=== PATIENT | female | born 1975 | race Two or more races ===

== ENCOUNTER 2016-11-01 19:58 | Emergency (ER) | payer OTHER ==
[~2016-11-01] VITALS: Ht 160 cm; Wt 97.3 kg
[2016-11-01 19:59] VITALS: BP 134/87
[2016-11-01] MEDS ORDERED: ALBU17IN INH (20:05)
[2016-11-01] MEDS ORDERED: IPRATROPIUM 0.5MG/ALBUTEROL 2.5MG INH SOL UD 3ML (DUONEB)(J7620) NEB ONE (21:00)
[2016-11-01] MEDS ORDERED: ADVAIR DISKUS 250/50 INH PWD INH ONE (21:00)
[2016-11-01] MEDS ORDERED: TESS100C PO (21:36)
[2016-11-01] MEDS ORDERED: CLAR1TAB2 PO (21:40)
--- NOTE | 2016-11-02 01:06 | REP ---
Clinical: Cough . Comparison: 09/11/2015 . Technique: PA and lateral. Findings: The mediastinum and cardiac silhouette are normal. The lung lafleur are relatively clear and without acute consolidation, effusion, or pneumothorax. Very subtle density in the medial right lower lung zone cannot be excluded. The The skeletal structures are intact and normal. Impression: 1. No acute cardiopulmonary process. 2. Very subtle density in the medial right lower lung zone cannot be excluded. Consider chest CT for further investigation. Signed by Riccardo Hassan MD 11/02/2016 12:58 A
--- NOTE | 2016-11-04 08:05 | ED PDOC ---
Post-Departure Follow-Up certified letter sent to patient regarding radiology report. Madonna Wright MD Nov 04, 2016 08:04
== END 2016-11-01 22:06 | disposition home or self-care (01) ==
LOC: M ED 20:28
DX: J45.909 Unspecified asthma, uncomplicated (principal); R06.02 Shortness of breath; R05 Cough; Z87.891 Personal history of nicotine dependence

== ENCOUNTER → 2016-12-12 | Outpatient (CLI) | payer OTHER ==
[~2016-12-12] MED LIST: ALBU17IN INH; CLAR1TAB2 PO; TESS100C PO
[2016-12-12 12:58] LABS: BASO # 0.1 K/mm3 (0.0-0.2); EOS # 0.1 K/mm3 (0.0-0.50); EOS % 1.2 % (0.0-3.0); LARGE UNSTAINED CELL # 0.1 K/mm3 (0.0-0.4); LARGE UNSTAINED CELL % 1.2 % (0.0-4.0); LYMPH % 16.5 % (24.0-44.0); MEAN CORPUSCULAR HEMOGLOBIN 28.9 pg (27.0-33.0); MEAN CORPUSCULAR HGB CONC 34.7 g/dl (32.0-36.5); MEAN CORPUSCULAR VOLUME 83.3 fl (80.0-96.0); MONO # 0.4 K/mm3 (0.0-0.8); MONO % 5.9 % (0.0-5.0); NEUTROPHILS # 4.4 K/mm3 (1.8-7.7); NEUTROPHILS % 74.3 % (36.0-66.0); PLATELET COUNT, AUTOMATED 242 k/mm3 (150-450); RED CELL DISTRIBUTION WIDTH 14.8 % (11.5-14.5); WHITE BLOOD COUNT 5.9 K/mm3 (4.0-10.0)
[2016-12-12 13:39] LABS: ALBUMIN 3.8 GM/DL (3.2-5.2); ALBUMIN/GLOBULIN RATIO 1.12 (1.00-1.93); ALKALINE PHOSPHATASE 51 U/L (45-117); ALT/SGPT 27 U/L (12-78); ANION GAP 7 MEQ/L (8-16); AST/SGOT 16 U/L (15-37); BILIRUBIN,TOTAL 0.7 MG/DL (0.2-1.0); BLOOD UREA NITROGEN 13 MG/DL (7-18); CALCIUM LEVEL 8.8 MG/DL (8.5-10.1); CARBON DIOXIDE LEVEL 26 MEQ/L (21-32); CHLORIDE LEVEL 102 MEQ/L (98-107); CHOLESTEROL LEVEL 188 MG/DL (<200); CREATININE FOR GFR 0.64 MG/DL (0.55-1.02); GLOMERULAR FILTRATION RATE > 60.0 (>60); GLUCOSE, FASTING 88 MG/DL (70-105); POTASSIUM SERUM 4.2 MEQ/L (3.5-5.1); SODIUM LEVEL 135 MEQ/L (136-145); TOTAL PROTEIN 7.2 GM/DL (6.4-8.2); TRIGLYCERIDES LEVEL 111 MG/DL (<150)
== END ==
LOC: M LAB 12:15
PROVIDERS: ATTEND Physician Assistant
DX: R53.83 Other fatigue (principal); Z13.0 Encounter for screening for diseases of the blood and blood-forming organs and certain disorders involving the immune mechanism; Z13.220 Encounter for screening for lipoid disorders; Z13.21 Encounter for screening for nutritional disorder

== ENCOUNTER → 2016-12-23 | Outpatient (CLI) | payer OTHER ==
[~2016-12-23] MED LIST changes: +ISOVUE-370 76% 100ML VIAL (Q9967) As Ordered ONE
--- NOTE | 2016-12-23 22:15 | REP ---
CT chest with contrast: 12/23/2016. Comparison: Chest x-ray 11/01/2016, 09/11/2015. Clinical history: Possible ill-defined lung lesion on chest x-ray, CT to clarify. Technique: Bolus of 75 ml Isovue 370 with scanning through the chest and both coronal and sagittal reconstructions provided. The lung lafleur are well inflated. There is no pleural effusion, focal pleural thickening or pleural based mass. No calcific plaques are present. No nodule, infiltrate or atelectasis is seen right medial base. There are no findings. No chest wall soft tissue abnormalities are evident. Heart is not enlarged. There is no pericardial thickening or effusion. The aorta is without aneurysm or dissection. No specific chamber enlargement. There were a couple of calcifications in the aortic arch. No pathologic sized mediastinal or hilar adenopathy. No axillary or supraclavicular mass. Bone windows show sternum, manubrium, clavicles, small portion of the humeral heads, scapula, ribs and the included spine grossly intact. The upper abdomen showed that portion of liver included to be intact. Spleen is not enlarged. Neither show a lesion. Gallbladder and pancreas visualized were intact. Adrenal glands normal and the upper poles of kidneys intact. No hiatal hernia. Impression: 1. Normal contrast enhanced CT chest. The radiographic finding is superimposition of shadows from lower lobe vessels, epicardial fat pad and chest wall structures. Negative exam. Signed by Amor Griffin MD 12/23/2016 10:39 P
== END ==
LOC: M RAD 17:15
PROVIDERS: ATTEND Physician Assistant
DX: R91.8 Other nonspecific abnormal finding of lung field (principal)

== ENCOUNTER → 2017-02-07 | Outpatient (CLI) | payer OTHER ==
[~2017-02-07] MED LIST changes: -ISOVUE-370 76% 100ML VIAL (Q9967) As Ordered ONE; +METHACHOLINE KIT (J7674) INH ONE
--- NOTE | 2017-02-07 14:42 | PFTRPT ---
Tech: Wendi TORRES RRT Age: 41 Sex: Female Race: Height: 63.00 Inches Weight: 211.00 Lbs BSA: 1.98 Diagnosis: R06.02 METHACHOLINE CHALLENGE REPORT: ORDERING PROVIDER: SAFIA Trejo DATE OF SERVICE: 02/07/17 INTERPRETATION: The study was of excellent technical quality. Under protocol, methacholine was administered. At a dose of 25 mg (188.875 CDUs) of methacholine, only a maximal of 19% decline in the FEV1 was noted. This does not meet criteria for a positive study. Flow rates did return to baseline post bronchodilator administration. IMPRESSION: Negative methacholine challenge study. MTDD
== END ==
LOC: M CARPUL 10:38
PROVIDERS: ATTEND Nurse Practitioner Adult Health
DX: R06.02 Shortness of breath (principal)

== ENCOUNTER → 2017-03-01 | Outpatient (REF) | payer OTHER ==
[~2017-03-01] MED LIST changes: -METHACHOLINE KIT (J7674) INH ONE
[2017-03-06 14:13] LABS: D001-IgE D pteronyssinus <0.10 kU/L (Class 0); E001-IgE Cat Epith/Dander < 0.10 kU/L (Class 0); E005-IgE Dog Dander < 0.10 kU/L (Class 0); G002-IgE Bermuda Grass < 0.10 kU/L (Class 0); G008-IgE Kentucky Bluegrass < 0.10 kU/L (Class 0); M001-IgE Penicillium chrysogen < 0.10 kU/L (Class 0); M002 IgE Cladosporium herbaru < 0.10 kU/L (Class 0); M003 IgE Aspergillus fumigatu < 0.10 kU/L (Class 0); M006-IgE Alternaria alternata < 0.10 kU/L (Class 0); T001-IgE Maple/Box Elder < 0.10 kU/L (Class 0); T003-IgE Common Silver Birch < 0.10 kU/L (Class 0); T007-IgE Oak, White < 0.10 kU/L (Class 0); T008-IgE Elm, American < 0.10 kU/L (Class 0); T015-IgE Ash, White < 0.10 kU/L (Class 0); T041-IgE Hickory, White < 0.10 kU/L (Class 0); W001-IgE Ragweed, Short < 0.10 kU/L (Class 0); W009-IgE Plantain, English < 0.10 kU/L (Class 0); W014-IgE Pigweed, Rough < 0.10 kU/L (Class 0); W018-IgE Sheep Sorrel < 0.10 kU/L (Class 0)
== END ==
LOC: M LAB REF 16:58
PROVIDERS: ATTEND Nurse Practitioner Adult Health
DX: R06.02 Shortness of breath (principal)

== ENCOUNTER → 2017-08-07 | Outpatient (REF) | payer OTHER ==
[2017-08-07 20:30] LABS: INFLUENZA A AMPLIFICATION NEGATIVE (NEGATIVE); INFLUENZA B AMPLIFICATION POSITIVE (NEGATIVE)
== END ==
LOC: M LAB REF 19:33
DX: J11.1 Influenza due to unidentified influenza virus with other respiratory manifestations (principal)
CPT/HCPCS: 87502

== ENCOUNTER → 2018-12-06 | Outpatient (CLI) | payer OTHER ==
[2018-12-06 07:35] LABS: HEMOGLOBIN 12.8 g/dl (12.0-15.5); MEAN CORPUSCULAR HEMOGLOBIN 28.3 pg (27.0-33.0); MEAN CORPUSCULAR HGB CONC 32.8 g/dl (32.0-36.5); MEAN CORPUSCULAR VOLUME 86.3 fl (80.0-96.0); PLATELET COUNT, AUTOMATED 244 10^3/uL (150-450); RED BLOOD COUNT 4.52 10^6/uL (4.00-5.40); WHITE BLOOD COUNT 7.5 10^3/uL (4.0-10.0)
--- NOTE | 2018-12-06 07:49 | REP ---
PA and lateral chest: Comparison is 11/01/2016. The lung lafleur are clear. The cardiac size is normal. The paul, mediastinum, and skeletal structures are unremarkable. Impression: Negative PA and lateral chest. There is no interval change. Electronically Signed by Davi Allan MD 12/06/2018 07:42 A
[2018-12-06 08:09] LABS: ALBUMIN 3.4 GM/DL (3.2-5.2); ALT/SGPT 23 U/L (12-78); BILIRUBIN,TOTAL 0.5 MG/DL (0.2-1.0); BLOOD UREA NITROGEN 9 MG/DL (7-18); CALCIUM LEVEL 8.5 MG/DL (8.5-10.1); CARBON DIOXIDE LEVEL 28 MEQ/L (21-32); CHLORIDE LEVEL 107 MEQ/L (98-107); CHOLESTEROL LEVEL 176 MG/DL (<200); CHOLESTEROL RISK RATIO 3.744 (<5); CREATININE FOR GFR 0.68 MG/DL (0.55-1.30); GLOMERULAR FILTRATION RATE > 60.0 (>58); GLUCOSE, FASTING 93 MG/DL (70-100); HDL CHOLESTEROL 47 MG/DL (>40); LDL CHOLESTEROL 99 MG/DL (<100); NON-HDL-C 129 MG/DL; SODIUM LEVEL 141 MEQ/L (136-145); TOTAL PROTEIN 6.9 GM/DL (6.4-8.2); TRIGLYCERIDES LEVEL 148 MG/DL (<150)
[2018-12-06 10:03] LABS: TOTAL 25(OH) VITAMIN D 25.6 NG/ML (30.0-100.0)
[2018-12-06 10:39] LABS: HEMOGLOBIN A1c 5.1 %
--- NOTE | 2018-12-06 19:07 | ECGEPIP ---
[facility] Test Date: 2018-12-06 Pat Name: CAROLE SHORT Department: Room: - Gender: Female [employer] Supervisor: JAIME : 1975 Requested By: Chandler Pham Order Number: [id number] Reading MD: Dakota Becerra Measurements Intervals Rogers Rate: 62 P: 31 WI: 179 QRS: 14 QRSD: 89 T: 21 QT: 423 QTc: 432 Interpretive Statements SINUS RHYTHM WITH SINUS ARRHYTHMIA Normal Electronically Signed on 12-06-2018 19:06:52 EDT by Dakota Becerra
== END ==
LOC: M LAB 07:09
PROVIDERS: ATTEND Family Medicine
DX: I10 Essential (primary) hypertension (principal); E03.9 Hypothyroidism, unspecified; R53.83 Other fatigue

== ENCOUNTER → 2020-02-23 | Outpatient (CLI) | payer OTHER ==
[2020-02-23 11:24] LABS: HEMATOCRIT 38.5 % (36.0-47.0); HEMOGLOBIN 12.7 g/dl (12.0-15.5); PLATELET COUNT, AUTOMATED 288 10^3/uL (150-450); RED BLOOD COUNT 4.53 10^6/uL (4.00-5.40); WHITE BLOOD COUNT 6.2 10^3/uL (4.0-10.0)
[2020-02-23 11:47] LABS: HEMOGLOBIN A1c 4.8 %
[2020-02-23 11:56] LABS: ALBUMIN 3.6 GM/DL (3.2-5.2); ALT/SGPT 36 U/L (12-78); BILIRUBIN,TOTAL 0.5 MG/DL (0.2-1.0); BLOOD UREA NITROGEN 10 MG/DL (7-18); CALCIUM LEVEL 8.6 MG/DL (8.5-10.1); CARBON DIOXIDE LEVEL 26 MEQ/L (21-32); CHLORIDE LEVEL 108 MEQ/L (98-107); CHOLESTEROL LEVEL 187 MG/DL (<200); CHOLESTEROL RISK RATIO 4.155 (<5); CREATININE FOR GFR 0.73 MG/DL (0.55-1.30); GLOMERULAR FILTRATION RATE > 60.0 (>58); GLUCOSE, FASTING 89 MG/DL (70-100); HDL CHOLESTEROL 45 MG/DL (>40); LDL CHOLESTEROL 125 MG/DL (<100); NON-HDL-C 142 MG/DL; SODIUM LEVEL 138 MEQ/L (136-145); TOTAL PROTEIN 7.2 GM/DL (6.4-8.2); TRIGLYCERIDES LEVEL 87 MG/DL (<150)
--- NOTE | 2020-02-23 12:36 | ECGEPIP ---
[facility] Test Date: 2020-02-23 Pat Name: CAROLE SHORT Department: Room: - Gender: Female Marina Manager: MARGIE : 1975 Requested By: Chandler Pham Order Number: [id number] Reading MD: Claus Luz Measurements Intervals [place]rick Rate: 77 P: 37 AR: 177 QRS: 13 QRSD: 83 T: 19 QT: 373 QTc: 423 Interpretive Statements SINUS RHYTHM WITH SINUS ARRHYTHMIA Compared to prior tracing in the system on 12/06/18 at 7:28, heart rate was s slower otherwise ni significant changes Electronically Signed on 02-23-2020 12:36:19 EDT by Claus Luz
--- NOTE | 2020-03-02 17:40 | REP ---
TWO-VIEW CHEST COMPARISON: 12/06/2018. FINDINGS: Superior mediastinal structures are midline. The cardiac silhouette is normal for size, shape, and position. The diaphragmatic surfaces of the lungs are regular and the costophrenic angles are clear. The pulmonary lafleur are clear. The osseous structures are within normal limits. IMPRESSION: No significant change from the prior exam. No evidence of acute cardiopulmonary disease. MTDD
== END ==
LOC: M LAB 10:37
PROVIDERS: ATTEND Family Medicine
DX: E03.9 Hypothyroidism, unspecified (principal); I10 Essential (primary) hypertension; R53.83 Other fatigue

== ENCOUNTER → 2020-07-02 | Outpatient (CLI) | payer OTHER | LOC: M LABSMTC 12:22 | PROVIDERS: ATTEND Pediatrics | DX: Z20.822 Contact with and (suspected) exposure to COVID-19 (principal) | CPT/HCPCS: C9803; U0003 ==

== ENCOUNTER → 2022-01-05 | Outpatient (CLI) | payer OTHER | LOC: M RAD 15:45 | PROVIDERS: ATTEND Internal Medicine Cardiovascular Disease | DX: J44.1 Chronic obstructive pulmonary disease with (acute) exacerbation (principal) ==

== ENCOUNTER → 2023-03-01 | Outpatient (REF) | payer OTHER | LOC: M SFHCWAGY 10:36 | PROVIDERS: ATTEND Nurse Practitioner Family | DX: Z12.4 Encounter for screening for malignant neoplasm of cervix (principal) | CPT/HCPCS: 87624; G0123 ==

== ENCOUNTER → 2023-04-05 | Outpatient (CLI) | payer OTHER | LOC: M WHC 14:18 | PROVIDERS: ATTEND Nurse Practitioner Family | DX: N64.4 Mastodynia (principal); Z80.41 Family history of malignant neoplasm of ovary; R92.333 Mammographic heterogeneous density, bilateral breasts; N60.11 Diffuse cystic mastopathy of right breast; N60.12 Diffuse cystic mastopathy of left breast | CPT/HCPCS: 76641; 77066; G0279 ==

== ENCOUNTER → 2023-06-06 | Outpatient (REF) | payer OTHER ==
[2023-06-06 17:31] LABS: ALBUMIN 3.3 G/DL (3.2-5.2); ALKALINE PHOSPHATASE 54 U/L (46-116); ALT/SGPT 13 U/L (7.0-40); AST/SGOT 10 U/L (<34); BILIRUBIN,TOTAL 0.4 MG/DL (0.3-1.2); BLOOD UREA NITROGEN 10 MG/DL (9-23); CALCIUM LEVEL 8.8 MG/DL (8.5-10.1); CARBON DIOXIDE LEVEL 29 MMOL/L (20-31); CHLORIDE LEVEL 105 MMOL/L (98-107); CHOLESTEROL LEVEL 156 MG/DL (<200); CHOLESTEROL RISK RATIO 3.89 (<5); CREATININE FOR GFR 0.67 MG/DL (0.55-1.30); GLOMERULAR FILTRATION RATE > 60.0 (>58); GLUCOSE, FASTING 95 MG/DL (60-100); HDL CHOLESTEROL 40.1 MG/DL (>40); LDL CHOLESTEROL 73.7 MG/DL (<100); NON-HDL-C 115.9 MG/DL; POTASSIUM SERUM 3.9 MMOL/L (3.5-5.1); SODIUM LEVEL 137 MMOL/L (136-145); THYROID STIMULATING HORMONE 5.096 uIU/ML (0.55-4.78); TOTAL PROTEIN 6.6 G/DL (5.7-8.2); TRIGLYCERIDES LEVEL 211 MG/DL (<150)
[2023-06-06 17:33] LABS: BASO # 0.1 10^3/uL (0.0-0.2); EOS # 0.2 10^3/uL (0.0-0.5); EOS % 2.2 % (0.0-3.0); HEMATOCRIT 38.1 % (36.0-47.0); HEMOGLOBIN 12.6 g/dl (12.0-15.5); LYMPH # 1.1 10^3/uL (1.5-5.0); LYMPH % 13.6 % (24.0-44.0); MEAN CORPUSCULAR HEMOGLOBIN 27.6 pg (27.0-33.0); MEAN CORPUSCULAR HGB CONC 33.1 g/dl (32.0-36.5); MEAN CORPUSCULAR VOLUME 83.6 fl (80.0-96.0); MONO # 0.8 10^3/uL (0.0-0.8); MONO % 9.5 % (2.0-8.0); NEUTROPHILS % 73.2 % (36.0-66.0); PLATELET COUNT, AUTOMATED 296 10^3/uL (150-450); RED BLOOD COUNT 4.56 10^6/uL (4.00-5.40); WHITE BLOOD COUNT 8.2 10^3/uL (4.0-10.0)
[2023-06-06 17:48] LABS: HEMOGLOBIN A1c 4.9 % (4.0-6.0)
== END ==
LOC: M LAB REF 16:17
PROVIDERS: ATTEND Nurse Practitioner Family
DX: E66.3 Overweight (principal); E55.9 Vitamin D deficiency, unspecified; R53.83 Other fatigue

== ENCOUNTER → 2023-06-14 | Outpatient (CLI) | payer OTHER | LOC: M WUC 13:58 | PROVIDERS: ATTEND Nurse Practitioner Family | DX: J20.8 Acute bronchitis due to other specified organisms (principal) ==

== ENCOUNTER → 2023-07-24 | Outpatient (REF) | payer OTHER | LOC: M LAB REF 16:49 | PROVIDERS: ATTEND Nurse Practitioner Family | DX: R89.1 Abnormal level of hormones in specimens from other organs, systems and tissues (principal) ==

== ENCOUNTER → 2023-09-27 | Outpatient (CLI) | payer OTHER | LOC: M WHC 14:21 | PROVIDERS: ATTEND Nurse Practitioner Family | DX: R92.8 Other abnormal and inconclusive findings on diagnostic imaging of breast (principal) ==

== ENCOUNTER → 2024-01-05 | Outpatient (REF) | payer OTHER ==
[2024-01-08 13:57] LABS: MUMPS VIRUS IgG ANTIBODY < 9.00 AU/mL (>10.99); RUBEOLA IgG ANTIBODY > 300.00 AU/mL (>16.49)
== END ==
LOC: M LAB REF 16:27
PROVIDERS: ATTEND Nurse Practitioner Family
DX: Z11.8 Encounter for screening for other infectious and parasitic diseases (principal); Z23 Encounter for immunization

== ENCOUNTER → 2024-02-26 | Outpatient (CLI) | payer OTHER | LOC: M CARPUL 14:49 | PROVIDERS: ATTEND Nurse Practitioner Family | DX: J45.40 Moderate persistent asthma, uncomplicated (principal) ==

== ENCOUNTER → 2024-03-05 | Outpatient (CLI) | payer OTHER | LOC: M RAD 14:16 | PROVIDERS: ATTEND Nurse Practitioner Family | DX: R05.3 Chronic cough (principal) ==

== ENCOUNTER → 2024-05-28 | Outpatient (CLI) | payer OTHER | LOC: M RAD 09:04 | PROVIDERS: ATTEND Nurse Practitioner Family | DX: R10.9 Unspecified abdominal pain (principal) ==

== ENCOUNTER → 2024-08-14 | Outpatient (CLI) | payer OTHER | LOC: M WHC 14:16 | PROVIDERS: ATTEND Nurse Practitioner Family | DX: Z12.31 Encounter for screening mammogram for malignant neoplasm of breast (principal); R92.343 Mammographic extreme density, bilateral breasts | CPT/HCPCS: 77066; G0279 ==

== ENCOUNTER → 2024-09-19 | Outpatient (REF) | payer OTHER ==
[2024-09-19 19:09] LABS: BASO # 0.1 10^3/uL (0.0-0.2); EOS # 0.1 10^3/uL (0.0-0.5); EOS % 1.8 % (0.0-3.0); HEMATOCRIT 39.3 % (36.0-47.0); HEMOGLOBIN 12.9 g/dl (12.0-15.5); LYMPH # 1.5 10^3/uL (1.5-5.0); LYMPH % 20.1 % (24.0-44.0); MEAN CORPUSCULAR HEMOGLOBIN 27.7 pg (27.0-33.0); MEAN CORPUSCULAR HGB CONC 32.8 g/dl (32.0-36.5); MEAN CORPUSCULAR VOLUME 84.3 fl (80.0-96.0); MONO # 0.5 10^3/uL (0.0-0.8); MONO % 7.3 % (2.0-8.0); NEUTROPHILS # 5.1 10^3/uL (1.5-8.5); NEUTROPHILS % 69.5 % (36.0-66.0); PLATELET COUNT, AUTOMATED 302 10^3/uL (150-450); RED BLOOD COUNT 4.66 10^6/uL (4.00-5.40); WHITE BLOOD COUNT 7.3 10^3/uL (4.0-10.0)
[2024-09-19 19:41] LABS: ALBUMIN 3.6 G/DL (3.2-5.2); BILIRUBIN,TOTAL 0.5 MG/DL (0.3-1.2); CALCIUM LEVEL 8.8 MG/DL (8.5-10.1); CHOLESTEROL RISK RATIO 4.45 (<5); CREATININE FOR GFR 0.92 MG/DL (0.55-1.30); GLOMERULAR FILTRATION RATE 77.8 (>58); HDL CHOLESTEROL 39.7 MG/DL (>40); LDL CHOLESTEROL 102.7 MG/DL (<100); NON-HDL-C 137.3 MG/DL; PERCENT SATURATION 16.2 % (13.2-45.0); POTASSIUM SERUM 3.9 MMOL/L (3.5-5.1); TOTAL PROTEIN 6.8 G/DL (5.7-8.2)
[2024-09-19 19:42] LABS: HEMOGLOBIN A1c 4.8 % (4.0-6.0)
[2024-09-19 19:43] LABS: THYROID STIMULATING HORMONE 2.306 uIU/ML (0.55-4.78)
== END ==
LOC: M LAB REF 17:14
PROVIDERS: ATTEND Nurse Practitioner Family
DX: R53.83 Other fatigue (principal); Z68.36 Body mass index [BMI] 36.0-36.9, adult; E66.812 Obesity, class 2